=== PATIENT | female | born 1955 | race Caucasian/White ===

== ENCOUNTER 2017-04-12 15:35 | Emergency (ER) | payer OTHER ==
[~2017-04-12] VITALS: Ht 167.6 cm; Wt 77.1 kg
[2017-04-12] MEDS ORDERED: NORCO 5-325 TA1 EACH PO (16:50)
== END 2017-04-12 17:10 | disposition home or self-care (01) ==
LOC: ED 15:35
DX: S82.832A Other fracture of upper and lower end of left fibula, initial encounter for closed fracture (principal); Z88.1 Allergy status to other antibiotic agents; W10.9XXA Fall (on) (from) unspecified stairs and steps, initial encounter
CPT/HCPCS: 73610; 99283

== ENCOUNTER 2017-04-18 12:00 | Day surgery (SDC) | payer OTHER ==
[~2017-04-18] VITALS: Ht 167.6 cm; Wt 83.9 kg
[~2017-04-18 12:00] MED LIST: NORCO 5-325 TA1 EACH PO
[2017-04-18] MEDS ORDERED: TYLENOL EXTRA500 MG PO (12:22)
[2017-04-18] MEDS ORDERED: IBUPROFEN IB200 MG PO (12:22)
[2017-04-18] MEDS ORDERED: HYDROCODON-ACE1 EA11 PO (13:58)
[2017-04-18] MEDS ORDERED: XANAX0.25 MG PO (13:59)
--- NOTE | 2017-04-18 15:01 | NUR ---
LE 1445: PT ARRIVES TO DS UNIT ROOM 6 VIA STRETCHER FROM PACU NURSE ESTEPHANIE. PT IS AWAKE AND ALERT UPON ARRIVAL. PT HAS BOOT ON WITH ICE IN PLACE. PT IS REPORTING MINIMAL PAIN, BUT HAS VOICED SHE "WOULD LIKE TO KEEP AHEAD OF THE PAIN" AND HAS REQUESTED PAIN MEDS. PT PROVIDED WARM BLANKETS AND ICED WATER. IN ROOM ON ARRIVAL. CALL LIGHT WITHIN REACH, NO FURTHER REQUESTS AT THIS TIME.
--- NOTE | 2017-04-18 15:55 | NUR ---
PT GIVEN CRACKERS AND PUDDING, TOLERATED WELL. NO COMPLAINTS OF N/V. PT STATES HER PAIN IS WELL CONTROLLED FROM MEDS GIVEN IN PACU. LEFT UNIT TO GET PRESCRIPTIONS FOR DC. WARM BLANKETS PROVIDED, CALL LIGHT WITHIN REACH.
--- NOTE | 2017-04-18 16:42 | NUR ---
OFFERED PT TURKEY SANDWICH AND MILK, TOLERATED WELL WITH NO N/V. PT UP TO BEDSIDE COMMODE AND VOIDS LARGE AMOUNT OF YELLOW URINE. PT INQUIRES ABOUT DC AND STATES SHE'S "READY TO GO HOME."
--- NOTE | 2017-04-18 17:14 | NUR ---
DC INSTRUCTIONS GIVEN IN THE PRESENCE OF PT AND HER , BOTH AGREE AND UNDERSTAND WITH ALL QUESTIONS ANSWERED. AIDS IN DRESSING PT PER HER REQUEST. PT DC'S FROM DS UNIT VIA WHEELCHAIR WITH HER . NO APPARENT DISTRESS NOTED.
--- NOTE | 2017-04-21 07:16 | OR ---
[facility] [address] [place], [place] [address] Signed DATE OF OPERATION: 04/18/2017 SURGEON: Mary Jo Weiss MD PREOPERATIVE DIAGNOSIS: Left ankle fracture, Galvez C, with syndesmosis disruption. POSTOPERATIVE DIAGNOSIS: Left ankle fracture, Galvez C, with syndesmosis disruption. PROCEDURE PERFORMED: Open reduction and internal fixation of the left ankle with syndesmosis fixation. AGILE SCRUM MASTER: Patricia Banegas PA-C. Patricia was present for critical positioning, retraction, and wound closure as well as postoperative splint application. ANESTHESIA: General. BLOOD LOSS: Minimal. TOURNIQUET TIME: 27 minutes. IMPLANTS: Seven-hole 1/3rd tubular plate with 7 screws and Arthrex TightRope. BRIEF HISTORY: Raiza is a 62-year-old female with pain in her ankle after sustaining a ground level fall. She had a Galvez C ankle fracture and instability of mortise on preoperative radiographs. Risks and benefits of operative treatment were discussed with her and she elected to proceed. DESCRIPTION OF PROCEDURE: Once consent was obtained, she was taken to the operating room. After adequate anesthesia, she was placed on the operating room table. All downside pressure points were well padded. A well-padded proximal thigh tourniquet was placed and she was placed on a hip bump. The leg was prepped and draped in standard sterile fashion and Electronically Signed By: MARY JO WEISS MD 04/21/17 0716 PATIENT NAME: RAIZA HARRY OPERATIVE REPORT DATE OF : 51 PHYSICIAN: MARY JO WEISS MD REPORT #: [id number] REPORT IS CONFIDENTIAL AND NOT TO BE RELEASED WITHOUT AUTHORIZATION [facility] [address] [place], [place] [address] Signed exsanguinated using Esmarch bandage. Tourniquet was inflated to 250 mmHg. Standard lateral approach through a 3.5-inch incision was taken through the skin. Because it was a proximal fracture, I took great care in going through the subcutaneous tissue with tenotomy scissors. We got down to the bone. There was an anatomical anomaly. Her superficial peroneal nerve appeared to be traveling on the lateral aspect of the bone, starting at the top of the incision and extending down 2/[address] and then going anterior. This was carefully mobilized and anteriorly retracted and protected throughout the remainder of the case. There was no laceration of the nerve on examination. It was contused at the level of the fracture. The fracture itself was well reduced and was left in position. A 7-hole plate was then fashioned to fit the lateral aspect and held with the central screw. This was checked using image intensifier and found to be satisfactorily positioned. The center screw of the plate was then drilled through the fracture in the standard AO lag technique and the screw was placed. The remaining screws were drilled and appropriate length screws were placed. One 3.5 locking screw was placed in the distal hole. Once this was accomplished, the guidewire for the Arthrex TightRope was positioned just anterior to the plate in the fibula and advanced across the tibia holding the mortise in reduction. This was overdrilled using the 4 mm drill. The TightRope was then placed through the fibula and tibia and brought out on the medial side. No skin incision was made. The button was then flipped and since this was the knotless TightRope, the lateral button was then tightened against the fibula just anterior to the plate until it was well situated and tight. It was then tightened one more time and the sutures were cut. The ankle was quite stable at the end of the procedure. The radiograph showed excellent reduction and fixation. The wound was copiously irrigated with antibiotic solution. The periosteum was closed using 2-0 Vicryl underneath the superficial peroneal nerve. The subcutaneous tissue was closed over it and the skin was closed with lorenzo. The lorenzo were applied to the skin in traction to turn it away from the nerve. The wound was dressed with Mepilex Ag dressing and back in her boot. She tolerated the procedure well. All sponge, needle, and instrument counts were correct. Mary Jo Weiss MD BA/MODL /[id number] Electronically Signed By: MARY JO WEISS MD 04/21/17 0716 PATIENT NAME: RAIZA HARRY OPERATIVE REPORT DATE OF : 51 PHYSICIAN: MARY JO WEISS MD REPORT #: [id number] REPORT IS CONFIDENTIAL AND NOT TO BE RELEASED WITHOUT AUTHORIZATION
== END 2017-04-18 17:20 | disposition home or self-care (01) ==
LOC: DS 12:00
PROVIDERS: Specialist
PROC: 0QSK04Z Reposition Left Fibula with Internal Fixation Device, Open Approach (ICD-10-PCS; principal; 2017-04-18 13:00)
DX: S82.435A Nondisplaced oblique fracture of shaft of left fibula, initial encounter for closed fracture (principal); W10.8XXA Fall (on) (from) other stairs and steps, initial encounter
CPT/HCPCS: 01480; 64445; 64447; 64450; 73600; 76942; C1713; J0690; J1100; J1885; J2250; J2704; J2765; J2795; J3010; J7120